=== PATIENT | male | born 1995 | race Caucasian/White ===

== ENCOUNTER 2018-07-23 16:15 | Emergency (ER) | payer OTHER ==
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
[2018-07-23 16:29] VITALS: BP 140/65; PULSE 91; TEMP 98.3; BMI 25.7
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
== END 2018-07-23 17:27 | disposition home or self-care (01) ==
LOC: JERFT 16:15
DX: S50.02XA Contusion of left elbow, initial encounter (principal); S40.022A Contusion of left upper arm, initial encounter; S20.212A Contusion of left front wall of thorax, initial encounter; V47.5XXA Car driver injured in collision with fixed or stationary object in traffic accident, initial encounter; Y92.414 Local residential or business street as the place of occurrence of the external cause; Y93.89 Activity, other specified; Y99.8 Other external cause status
CPT/HCPCS: 71046-TC-FY; 71101-TC-LT-FY; 73060-TC-LT-FY; 73070-TC-LT-FY; 99281-25